=== PATIENT | female | born 1945 | race Caucasian/White ===

== ENCOUNTER 2017-01-20 04:56 | Inpatient (IN) | payer MEDICARE, OTHER ==
[~2017-01-20 04:56] MED LIST: CIPRO250 M2 PO; COZAAR50 M1 PO; CYMBALTA60 M1 PO; OMEPRAZOLE20 M3 PO; POTASSIUM CHLO10 ME2 PO; TRAZODONE HCL50 M1 PO; XARELTO20 M1 PO; [UNRECOGNIZED DRUG - OTHER] PO
[2017-01-20 05:58] LABS: PROTHROMBIN TIME 11.3 SECONDS (9.0-13.6)
== END 2017-01-20 13:15 | DRG 489 ==
LOC: SHSB 04:56 → ORE 07:42 → PACU 08:58 → SHSB 10:20
PROVIDERS: Anesthesiology; ADMIT Orthopaedic Surgery
PROC: 0SBD0ZZ Excision of Left Knee Joint, Open Approach (ICD-10-PCS; principal; 2017-01-20)
PROC: 0S9D0ZZ Drainage of Left Knee Joint, Open Approach (ICD-10-PCS; 2017-01-20)
DX: M24.662 Ankylosis, left knee (principal); J44.9 Chronic obstructive pulmonary disease, unspecified; I10 Essential (primary) hypertension; Z96.652 Presence of left artificial knee joint; M25.862 Other specified joint disorders, left knee; Z86.718 Personal history of other venous thrombosis and embolism; E78.5 Hyperlipidemia, unspecified; I73.9 Peripheral vascular disease, unspecified; K21.9 Gastro-esophageal reflux disease without esophagitis; G47.00 Insomnia, unspecified; E11.9 Type 2 diabetes mellitus without complications; Z87.891 Personal history of nicotine dependence; F32.9 Major depressive disorder, single episode, unspecified
CPT/HCPCS: J0171; J1170; J1885; J2270; J2795; J3010